=== PATIENT | female | born 1980 | race Caucasian/White ===

== ENCOUNTER → 2017-09-06 15:49 | Outpatient (CLI) | payer OTHER, SELFPAY ==
--- NOTE | 2017-09-06 15:57 | RAD_ITS ---
STUDY: XR SPINE ENTIRE THORACIC T LUMBAR (W SKULL, CERVICAL AND SACRAL SPINE IF PERFORMED) REASON FOR EXAM: Female, 37 years old. Scoliosis TECHNIQUE: Radiological exam, spine, entire thoracic and lumbar, including skull, cervical and sacral spine if performed (eg, scoliosis evaluation); 2 or 3 views. COMPARISON: None. FINDINGS: There is a 40 degree dextroscoliosis of the thoracic spine with the apex of the convexity at the T7 level. There is a 14 degree levoscoliosis scoliosis of the lumbar spine with the apex of the convexity at the L1 -2 level. Normal kyphosis of the thoracic spine. Normal thoracic vertebrae and endplates. Normal disc space heights of the thoracic spine. Normal lordosis of the lumbar spine. Normal lumbar vertebrae and endplates. Normal disc space heights of the lumbar spine. The soft tissue structures are unremarkable. RAD/Scoliosis 2 or 3 views IMPRESSION: There is a 40 degree dextroscoliosis of the thoracic spine with the apex of the convexity at the T7 level. There is a 14 degree levoscoliosis scoliosis of the lumbar spine with the apex of the convexity at the L1 -2 level. Electronically Signed: Bhupinder Christopher MD at 17:17 EDT , Service support ,
== END ==
LOC: MTRAD 15:54
PROVIDERS: Family Provider Family Medicine; PCP Family Medicine; Visit Provider Family Medicine
DX: M41.9 Scoliosis, unspecified (principal)
CPT/HCPCS: 72082

== ENCOUNTER → 2018-05-25 13:55 | Outpatient (CLI) | payer BC, SELFPAY ==
[2018-05-29 13:04] LABS: HPV Reflexed? NOT INDICATED
== END ==
PROVIDERS: Visit Provider Obstetrics & Gynecology
DX: Z12.4 Encounter for screening for malignant neoplasm of cervix (principal)
CPT/HCPCS: 88175; G0145

== ENCOUNTER → 2019-06-19 16:41 | Outpatient (CLI) | payer BC, SELFPAY ==
[2015-04-06 21:18] VITALS: BMI 28.8
[2019-06-21 21:25] LABS: HPV Reflexed? NOT INDICATED
== END ==
PROVIDERS: Visit Provider Obstetrics & Gynecology
DX: Z12.4 Encounter for screening for malignant neoplasm of cervix (principal)
CPT/HCPCS: 88175; G0145

== ENCOUNTER → 2020-03-12 12:09 | Outpatient (CLI) | payer BC, SELFPAY ==
[2015-04-06 21:18] VITALS: BMI 28.8
--- NOTE | 2020-03-12 12:12 | RAD_ITS ---
STUDY: X-RAY - RIGHT SHOULDER REASON FOR EXAM: Female, 39 years old. Pain TECHNIQUE: 4 view(s) of the shoulder. COMPARISON: None. FINDINGS: There is no evidence of fracture or dislocation. There are no significant degenerative changes. There are no radiodense foreign bodies. There is scoliosis noted in the spine. RAD/Shoulder min 2 Views IMPRESSION: No fracture or dislocation in the right shoulder. Scoliosis.. Electronically Signed: Bar Munson, at 16:16 EDT Tel , Service support ,
== END ==
LOC: MTRAD 12:11
PROVIDERS: PCP Family Medicine; Referring Provider Family Medicine; Visit Provider Family Medicine
DX: M25.511 Pain in right shoulder (principal)
CPT/HCPCS: 73030

== ENCOUNTER 2020-05-03 09:30 | Outpatient (RCR) | payer BC, SELFPAY ==
--- NOTE | 2020-03-25 15:05 | HP.PTEVAL ---
Patient's Visit Information SHERRY VELASCO is a 39 year old F referred to Physical Therapy by Dr. Segundo Valenzuela MD with a diagnosis of R shoulder pain. Date of Evaluation: 03/25/20 Physical Therapist: Bhupinder Fitch, PT, ATC - Visit Plan Frequency: 1x/Week Duration: 2 Weeks Plan: Issue and instruct a HEP consisting of rotator cuff strengthening and scap stab ex's - Subjective Pt is R hand dominant. Pt has mid-thoracic scoliosis, was completing strengthening for scoliosis and ended up hurting R shoulder. Pain started to go all the way from shoulder to hand about 3 weeks ago. Has been dealing with the shoulder pain for about 2 months. Can feel popping and clicking with shoulder rotation. Feels tingling sometimes mostly when she wakes up. Ice, biofreeze roll-on, and motrin help with pain. The pain often times wakes her up at night. Works from home for [employer] using a standing desk, stands for about 40% of work day. 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 - Pain R shoulder Pain Intensity (Out of 10): 4 Pain Intensity Range: 2, 9 - Objective Neuro: B UE sensation is WNL to light touch. B bicepital reflex= 2/3. Palpation: Pt is very sore along the distribution of the supraspinatus muscle. No obvious deformity or crepitus at this time. ROM: L shoulder flex= 170, abd= 170, ER= 55, IR WNL; R shoulder flex= 150, abd= 80, ER= 60, IR minimally limited. MMT: R shoulder ER and ABD= 4-/5 and painful. All other B UE 5/5 throughout. Special testing: Pos empty can, Pos HK test - Goals Goal 1:: I wtih HEP Goal Time Frame: 2 Weeks - Rehabilitation Potential Physical Therapy Diagnosis: R shoulder pain, weakness, and limited ROM secondary to R shoulder impingement syndrome Rehabilitation Potential: Good - Anticipated Interventions Patient/Client Instruction: Educate patient on: Condition, Plan of Care For the Purpose of:: To improve self management Therapeutic Exercise to Include: Strength training, Flexibilty training, Active ROM, Scapular Strength/Stabilization For the Purpose of:: To decrease pain, To increase ROM, To improve muscle performance and motor function Cryotherapy (ice pack, ice massage): Yes For the Purpose of:: To decrease pain Thank you for the opportunity to evaluate your patient. For Medicare and Medicare HMO plans, please review the plan of care and approve it. It will need to be FAXED BACK to us at [phone] for Medicare purposes. For Medicare only, by signing this I certify the plan of care. Please let me know if there are questions or concerns regarding this plan of care. Physician Signature: Date:
--- NOTE | 2020-05-03 10:05 | HP.PTREVAL ---
Dr. Segundo Valenzuela MD, It has been my pleasure to treat SHERRY VELASCO over the last 4 visits for R shoulder pain. Please see the progress note below for an update on the physical therapy plan of care! Subjective: Pt reports she feels ready for discharge Objective/Function: Pt reports her pain ranges from 2-7/10 at this time. R shoulder ROM: flex= 160, abd= 150, ER= 55, IR WNL. R shoulder MMT: R shoulder flex and abd= 4/5, IR and ER 4+/5. Pt is progressing well towards Rx goals. Plan Plan: Followup in 4 weeks Goals Goal 1:: I wtih HEP Goal Time Frame: 2 Weeks Goal Progress: Goal Met Anticipated Interventions Patient/Client Instruction: Educate patient on: Condition, Plan of Care For the Purpose of:: To improve self management Therapeutic Exercise to Include: Strength training, Flexibilty training, Active ROM, Scapular Strength/Stabilization For the Purpose of:: To decrease pain, To increase ROM, To improve muscle performance and motor function Cryotherapy (ice pack, ice massage): Yes For the Purpose of:: To decrease pain Please do not hesitate to contact me at [phone] by phone or if you have questions or concerns regarding this new plan of care! Sincerely, Bhupinder Fitch, PT, ATC
--- NOTE | 2020-07-08 15:14 | HP.PT.NRP ---
SHERRY VELASCO was seen in my office for initial evaluation on 03/25/20. The following Plan of Care was established for this patient: Initial Frequency: 1x/Week Initial Duration: 2 Weeks Patient/Client Instruction: Educate patient on: Condition, Plan of Care For the Purpose of:: To improve self management Therapeutic Exercise to Include: Strength training, Flexibilty training, Active ROM, Scapular Strength/Stabilization For the Purpose of:: To decrease pain, To increase ROM, To improve muscle performance and motor function Cryotherapy (ice pack, ice massage): Yes For the Purpose of:: To decrease pain This patient was last seen in our office . Pertinent comments regarding their Physical therapy will appear below: Pt was treated for 4 PT visits for R shoulder pain through the date of 05/03/20. Pt has not returned through todays date and is discontinued at this time. At this point I will be discontinuing this patient from physical therapy. I would be happy to see this patient again in the future if found appropriate by the physician. Thank you! Bhupinder Fitch, PT, ATC
== END 2020-05-03 19:00 | disposition home or self-care (01) ==
LOC: PT 09:30
PROVIDERS: PCP Family Medicine; Referring Provider Family Medicine; Visit Provider Family Medicine
DX: M25.511 Pain in right shoulder (principal)
CPT/HCPCS: 97110; 97161; 97164

== ENCOUNTER → 2020-07-30 10:21 | Outpatient (CLI) | payer BC, SELFPAY ==
--- NOTE | 2020-07-30 10:23 | BI_ITS ---
MAMMOGRAPHY - BILATERAL SCREENING REASON FOR EXAM: Female, 40 years old. Routine annual screening examination. PERTINENT HISTORY: TECHNIQUE: Digital bilateral breast temitope (3D mammographic acquisition) in the CC and MLO projections. 2-D mediolateral oblique (MLO) and craniocaudad (CC) views of both breasts were obtained. CAD: Full Field Digital Mammography with Computer Added Detection was performed. COMPARISON: None. Baseline examination. FINDINGS: Breast Composition: The breasts are heterogeneously dense, which may obscure small masses. There are no dominant masses or suspicious calcifications. No other significant abnormalities are identified. BI/SCRN MAMM (CAD)W/TEMITOPE BILAT IMPRESSION: Negative screening mammogram. Yearly followup mammogram recommended. (A) ASSESSMENT CATEGORY: BIRADS Category 1: Negative. A letter regarding these results will be sent to the patient by the facility within 30 days. Approximately 10% of breast cancers are not detected by mammography. A normal mammogram should not delay biopsy of a clinically suspicious abnormality. [id number] Electronically Signed: Narinder Hernandez MD at 11:00 EST , Service support ,
== END ==
PROVIDERS: PCP Family Medicine; Referring Provider Obstetrics & Gynecology; Visit Provider Obstetrics & Gynecology
DX: Z12.31 Encounter for screening mammogram for malignant neoplasm of breast (principal)
CPT/HCPCS: 77063; 77067

== ENCOUNTER 2021-08-13 09:08 | Outpatient (CLI) | payer BC, SELFPAY ==
--- NOTE | 2021-08-13 09:12 | BI_ITS ---
MAMMOGRAPHY - BILATERAL SCREENING 3-D TOMOSYNTHESIS REASON FOR EXAM: Female, 41 years old. SCREENING PERTINENT HISTORY: No significant family history. TECHNIQUE: 2-D mammograms and 3-D Tomosynthesis of the breast (s) were performed. CAD was performed. COMPARISON: 07/30/2020 FINDINGS: The breast composition is heterogeneously dense that can obscure small breast masses. Scattered benign calcifications are seen. No dense spiculated masses or suspicious microcalcifications are identified. No architectural distortion is identified. There is no skin thickening or retraction. There has been no significant change since the prior study. BI/SCRN MAMM (CAD)W/TEMITOPE BILAT IMPRESSION: No mammographic signs of malignancy. Routine yearly mammograms recommended. ASSESSMENT CATEGORY: BIRADS Category 1: Negative. A letter regarding these results will be sent to the patient by the facility within 30 days. FOLLOW UP RECOMMENDATION: Yearly follow up mammogram recommended. (A) Approximately 10% of breast cancers are not detected by mammography. A normal mammogram should not delay biopsy of a clinically suspicious abnormality. Electronically Signed: Mike Anders MD at 10:24 EDT ,
== END 2021-08-13 23:59 | disposition home or self-care (01) ==
LOC: OPBI 09:08
PROVIDERS: PCP Family Medicine; Referring Provider Obstetrics & Gynecology; Visit Provider Obstetrics & Gynecology
DX: Z12.31 Encounter for screening mammogram for malignant neoplasm of breast (principal)
CPT/HCPCS: 77063; 77067

== ENCOUNTER → 2021-09-18 | Outpatient (CLI) | payer BC, SELFPAY ==
[2021-09-25 17:42] LABS: HPV Reflexed? NOT INDICATED
== END | disposition home or self-care (01) ==
LOC: LABSPEC 13:47
PROVIDERS: PCP Family Medicine; Visit Provider Obstetrics & Gynecology
DX: Z12.4 Encounter for screening for malignant neoplasm of cervix (principal)
CPT/HCPCS: 88175; G0145

== ENCOUNTER → 2022-10-22 | Outpatient (CLI) | payer BC, SELFPAY ==
--- NOTE | 2022-10-22 13:47 | BI_ITS ---
MAMMOGRAPHY - BILATERAL SCREENING REASON FOR EXAM: Female, 42 years old. Routine annual screening examination. PERTINENT HISTORY: Non-contributory. TECHNIQUE: Digital bilateral breast temitope (3D mammographic acquisition) in the CC and MLO projections. 2-D mediolateral oblique (MLO) and craniocaudad (CC) views of both breasts were obtained. CAD: Full Field Digital Mammography with Computer Added Detection was performed. COMPARISON: Screening mammogram from 08/13/2021, 07/30/2020. FINDINGS: Breast Composition: The breasts are heterogeneously dense, which may obscure small masses. There are no dominant masses or suspicious calcifications. No other significant abnormalities are identified. There has been no significant change since the prior study. BI/SCRN MAMM (CAD)W/TEMITOPE BILAT IMPRESSION: Stable bilateral screening mammogram. Yearly follow-up mammogram recommended. (A) ASSESSMENT CATEGORY: BIRADS Category 1: Negative. A letter regarding these results will be sent to the patient by the facility within 30 days. Approximately 10% of breast cancers are not detected by mammography. A normal mammogram should not delay biopsy of a clinically suspicious abnormality. Electronically Signed: Mat Saleh DO at 13:00 EDT ,
== END | disposition home or self-care (01) ==
LOC: OPBI 13:46
PROVIDERS: PCP Family Medicine; Referring Provider Student in an Organized Health Care Education/Training Program; Visit Provider Student in an Organized Health Care Education/Training Program
DX: Z12.31 Encounter for screening mammogram for malignant neoplasm of breast (principal)
CPT/HCPCS: 77063; 77067

== ENCOUNTER → 2023-11-24 | Outpatient (CLI) | payer BC, SELFPAY ==
[2023-11-29 12:08] LABS: HPV APTIMA, High Risk Negative (Negative)
== END | disposition home or self-care (01) ==
LOC: LABSPEC 14:40
PROVIDERS: PCP Family Medicine; Referring Provider Nurse Practitioner Women's Health; Visit Provider Nurse Practitioner Women's Health
DX: Z12.4 Encounter for screening for malignant neoplasm of cervix (principal)
CPT/HCPCS: 87624; 88175; G0145

== ENCOUNTER → 2023-12-23 | Outpatient (CLI) | payer BC, SELFPAY ==
--- NOTE | 2023-12-23 15:11 | BI_ITS ---
MAMMOGRAPHY - BILATERAL SCREENING REASON FOR EXAM: Female, 43 years old. Routine annual screening examination. PERTINENT HISTORY: Non-contributory. TECHNIQUE: Digital bilateral breast temitope (3D mammographic acquisition) in the CC and MLO projections. 2-D mediolateral oblique (MLO) and craniocaudad (CC) views of both breasts were obtained. CAD: Full Field Digital Mammography with Computer Added Detection was performed. COMPARISON: Comparison is made with prior study dated October 22, 2022 and August 13, 2021. FINDINGS: Breast Composition: The breasts are heterogeneously dense, which may obscure small masses. There are no dominant masses or suspicious calcifications. No other significant abnormalities are identified. There has been no significant change since the prior study. BI/SCRN MAMM (CAD)W/TEMITOPE BILAT IMPRESSION: Stable bilateral screening mammogram. Yearly follow-up mammogram recommended. (A) ASSESSMENT CATEGORY: BIRADS Category 1: Negative. A letter regarding these results will be sent to the patient by the facility within 30 days. Approximately 10% of breast cancers are not detected by mammography. A normal mammogram should not delay biopsy of a clinically suspicious abnormality. [id number] Electronically Signed: Narinder Hernandez MD at 8:21 EDT ,
== END | disposition home or self-care (01) ==
LOC: OPBI 15:11
PROVIDERS: PCP Family Medicine; Referring Provider Nurse Practitioner Women's Health; Visit Provider Nurse Practitioner Women's Health
DX: Z12.31 Encounter for screening mammogram for malignant neoplasm of breast (principal)
CPT/HCPCS: 77063; 77067

== ENCOUNTER → 2024-01-17 | Outpatient (CLI) | payer BC, SELFPAY ==
--- NOTE | 2024-01-17 11:07 | RAD_ITS ---
STUDY: X-RAY - RIGHT HAND REASON FOR EXAM: Female, 43 years old. Right pointer finger injury, pain radiates up to wrist TECHNIQUE: 3 view(s) of the hand. COMPARISON: None. FINDINGS: Normal radiocarpal articulation. Normal distal radioulnar joint. Normal visualized carpal bones. Normal carpal articulations Normal carpometacarpal articulation of the thumb. Normal second through fifth carpometacarpal joints. Normal metacarpi. Normal metacarpophalangeal joint of the thumb. Normal interphalangeal joint of the thumb. Normal proximal and distal phalanges of the thumb. Normal metacarpophalangeal joints of the second through fifth fingers. Normal proximal and distal interphalangeal joints of the second through fifth fingers. Normal phalanges of the second through fifth fingers. The soft tissue structures are unremarkable. RAD/Hand Min 3 Views IMPRESSION: Normal x-ray examination of the hand. Electronically Signed: Narinder Hernandez MD at 11:21 EDT ,
== END | disposition home or self-care (01) ==
LOC: MTRAD 11:03
PROVIDERS: PCP Family Medicine; Referring Provider Registered Nurse; Visit Provider Registered Nurse
DX: S69.91XA Unspecified injury of right wrist, hand and finger(s), initial encounter (principal)
CPT/HCPCS: 73130

== ENCOUNTER → 2024-12-25 | Outpatient (CLI) | payer BC, SELFPAY ==
--- NOTE | 2024-12-25 12:24 | BI_ITS ---
EXAM: SCRN MAMM (CAD)W/TEMITOPE BILAT DATE: 12/25/2024 CLINICAL HISTORY: F, Age 44 y/o , SCREENING MAMMOGRAM FOR BREAST CANCER No family history. TECHNIQUE: SCRN MAMM (CAD)W/TEMITOPE BILAT COMPARISON: Prior exam(s) dated December 23, 2023.. FINDINGS: TISSUE DENSITY: The breasts are heterogeneously dense, which may obscure small masses. Bilateral Breast Mammographic Findings: No significant masses, calcifications or other abnormalities are identified. No suspicious masses, areas of developing architectural distortion, or suspicious calcifications. There has been no significant interval change. BI/SCRN MAMM (CAD)W/TEMITOPE BILAT IMPRESSION: Stable examination. OVERALL FINAL ASSESSMENT BI-RADS 1: NEGATIVE. RECOMMENDATION: Routine annual follow-up in 1 Year A letter with findings and recommendations will be mailed to the patient. Reading Location: [id number]
--- OUTSIDE RECORDS SUMMARY | 2024-12-25 22:18 | XMS RPT_ITS | CCD ---
Author Organization [facility] ion Partnership [facility] Care Team Providers Care Conditioner Tender Name Role Phone Bianca LAURA, Isabela Stephens Primary Care Provider GREGG RODRIGUEZ Attending Unavailable SELF Referring Unavailable ISABELA VALENZUELA Primary Care UnavailMARGARITA Morfin Referring Unavailable ISABELA VALENZUELA Primary Care Cal Valenzuela MD, Dr. Franz Primary Care Provider Bianca LAURA, Dr. Franz Referring Provider Dr. Apurva Ritchie DO Attending Provider Isabela Valenzuela Primary Care Unavailable Daniela Ram Referring Unavailable Daniela Ram Attending Unavailable Isabela Valenzuela Primary Care Unavailable Courtney SUPERVISOR FUR DRESSINGTrudy Referring Unavailable Courtney SUPERVISOR FUR DRESSINGTrudy Attending Unavailable Apurva Ritchie Attending Isabela Power Primary Care Unavailable Apurva Ritchie Referring Apurva Encarnacion Attending Isabela Power Referring Unavailable Isabela Valenzuela Primary Care Unavailable Medications Current Medications Medication Drug Class(es) Dates Sig (Normalized) Sig (Original) lidocaine hydrochloride 20 mg/ml mucous membrane topical solution (2 sources) Antiarrhythmic, Amide Local Anesthetic Start: 06-29-2018 lidocaine viscous (LIDOCAINE VISCOUS) 2 % solution Indications: Sore throat Gargle and spit 10-15mLs every 3-4 hours as need for throat discomfort. 120 mL 06/29/2018 Active Multivitamin capsule (2 sources) take 1 capsule by mouth once daily Multivitamin capsule Take 1 capsule by mouth once daily. Active Multivitamin tablet (1 source) Start: 11-24-2024 Multivitamin tablet Active 1 {tbl} PO daily November 24, 2024 12:00am Vit,Kaau69-Mvdv-Mywo c (Prenatabs Fa) 1 TABLET tablet (4 sources) Start: 04-06-2015 take 1 tablet by mouth once daily Vit,Ifii66-Xxgu-Th lic (Prenatabs Fa) 1 TABLET tablet Active 1 TABLET PO DAILY April 06, 2015 10:19pm Start: 04-06-2015 End: 11-02-2023 take 1 tablet by mouth once daily Vit,Lbij42-Vwvv-Jehvx (Prenatab s Fa) 1 TABLET tablet Discontinued 1 {tbl} PO DAILY April 06, 2015 1:00am November 02, 2023 1:02pm Start: 04-06-2015 take 1 tablet by macho th once daily Vit,Tiqe75-Bdtg-Wxqoc (Prenatab s Fa) 1 TABLET tablet Active 1 TABLET PO DAILY April 06, 2015 1:00am Completed/Discontinued Medications Medication Drug Class(es) Dates Sig (Normalized) Sig (Original) docusate sodium 100 mg oral capsule (4 sources) Start: 04-06-2015 End: 11-02-2023 take 1 capsule by mouth twice daily as needed for constipation Docusate Sodium (Dok) 100 MG capsule Discontinued 100 mg PO TWICE DAILY NEEDED as needed for Constipation 60 0 April 06, 2015 1:00am November 02, 2023 1:02pm hydrocortisone 10 mg/ml / neomycin 3.5 mg/ml / polymyxin b [id number] unt/ml otic suspension (1 source) Aminoglycoside Antibacterial, Polymyxin-class Antibacterial, Corticosteroid Start: 11-02-2023 End: 11-12-2023 Neomycin-Polymyxi n-Hc 3.5-10,000-1 mg/mL-unit/mL-% drops,suspension Discontinued 4 NMA OTIC THREE TIMES A DAY 10 10 0 November 02, 2023 12:00am November 11, 2023 12:00am November 12, 2023 12:06am oxyCODONE hydrochloride 5 mg oral tablet (4 sources) Opioid Agonist Start: 04-06-2015 End: 11-02-2023 take 5-10 mg by mouth every four hours as needed for pain Oxycodone 5 MG tablet Discontinued 5 - 10 mg PO EVERY 4 HOURS NEEDED as needed for Mod-Severe (Pain Scale 6-10) 30 0 April 06, 2015 1:00am November 02, 2023 1:02pm Problems Active Problems Problem Classification Problem Date Documented Da te Episodic/Chronic Other ear and sense organ disorders (1 source) Acute otitis externa; Translations: [Unspecified acute noninfective otitis externa, left ear] 11-24-2023 Episodic Other screening for suspected conditions (not mental disorders or infectious disease) (2 sources) Encounter for screening mammogram for malignant neoplasm of breast; Translations: [Encounter for screening mammogram for malignant neoplasm of breast] Onset: 01-14-2024 Episodic Residual codes; unclassified (1 source) Family history of gene mutation; Translations: [Family history of carrier of genetic disease] 07-19-2024 Episodic Residual codes; unclassified (1 source) Family history of carrier of genetic disease; Translations: [Family history of gene mutation] Onset: 07-20-2024 Episodic Unclassified (1 source) Encounter for screening for malignant neoplasm of colon Unclassified (2 sources) Z12.11 - Encounter for screening for malignant neoplasm of colon Past or Other Problems Problem Classification Problem Date Documented Da te Episodic/Chronic Other injuries and conditions due to external causes (1 source) Unspecified injury of right wrist, hand and finger(s), initial encounter; Translations: [Unspecified injury of right wrist, hand and finger(s), initial encounter] Onset: 02-03-2024 Episodic Results Test Name Value Interpretation Reference Range Facility Senior Security Architect Office Visit Reporton 11-24-2024 Senior Security Architect Office Visit Report [facility] [address], [address] [place] [address] OFFICE VISIT Date of Service: 11/24/24 MR#: [id number] Acct: [id number] Name: MIRIAN LEWIS SANA Rep #: [id number] : 1980 Provider: Dr. 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 Required: No Is patient in pain?: No Allergies No Known Allergies Allergy (Verified 11/24/24 13:26) Medications ???Medication ???Instructions ???Recorded ???Confirmed ???Type multivitamin 1 tab PO QDAY 11/24/24 11/24/24 Hi story Post menopausal: No Patient : No : No PFSH Medical History Acute otitis externa of left ear Surgical History S/P Social History (Updated 11/24/24 @ 13:38 by Nancy Zapata) household members: spouse current occupational status: employed current occupation: [employer] Smoking Status: Never smoker alcohol intake: current alcohol intake frequency: a few times a month substance use type: does not use caffeine: Yes what type of physical activity do you participate in: bicycling and yoga frequency: 3-4 times per week seatbelt use: always do you feel safe at home: Yes additional social history: History 2 Elective abortions Hx Para 2 Spontaneous abortions Hx # Term Pregnancies Ectopic pregnancies Hx # Pregnancies Multiple births # of living children 2 Past Pregnancies Del. Date Name GA/Weeks Outcome Route Bth Weight Gen Labor Lgth Anesthesia Del Locatn Provider FOB Unknown Mayuri 06/01/2012 Unknown Gisselle 04/06/2015 HPI Encounter for routine gynecological examination Details: MIRIAN LEWIS is a 44 year old who presents for annual exam. recently from stage 3 colon cancer Last PAP: 11/24/23 History of abnormal PAP: no Last mammogram: 12/23/23 History of abnormal mammogram: no Colon cancer screening: due soon Other preventative health care screenings: up to date . normal labs at lab lexy Female Reproductive History Cycle Length: 21-35 Bleeding Duration: 5 Questions: metorrhagia: No, sexually active: Yes, dyspareunia: No and PCB: No Menopausal Symptoms: No hot flashes, No night sweats, No weight change, No mood changes, No difficulty concentrating, No sleep problems and No change in libido ROS Const Constitutional: Reports as per HPI; Denies fatigue, increased appetite, poor appetite, night sweats, weight gain or weight loss Cardio Card: Denies chest pain Resp Resp: Denies cough or dyspnea GI GI: Reports as per HPI; Denies abdominal pain, bloating, constipation, nausea or vomiting : Reports as per HPI and other; Denies difficulty voiding, dysuria, hematuria, hot flashes, nipple discharge, pelvic pain, prolapse symptoms, urinary frequency, urinary incontinence, urinary urgency, vaginal discharge, vaginal dryness, vaginal odor or vaginal pruritus Skin Skin/Breast: Denies changing lesions, breast mass, breast pain, breast skin changes or nipple discharge Psych Psych: Denies anxiety, change in libido, depression or difficulty concentrating Exam Const General: cooperative, healthy appearing, comfortable, no acute distress, well developed and well groomed [facility] Head: normal to inspection and normocephalic Ears: hearing grossly normal bilaterally and external ears normal Nose: external nose normal Face and sinus: normal facial exam Neck Neck: normal visual inspection, full ROM and no lymphadenopathy Thyroid: thyroid normal Chest Chest palpation inspection: normal inspection of the chest Breast inspection: normal inspection of the breasts and normal inspection of the axillae Breast palpation: normal palpation of the breasts, normal palpation of the axillae and no axillary lymphadenopathy Resp Effort Inspection: normal respiratory effort GI Inspection: normal to inspection and non-distended Palpation: soft, no hepatosplenomegaly and no guarding General: bladder normal to palpation External Female Exam: normal external appearance, normal appearance of the urethra and no lesions Urethra: normal appearance of the urethra and normal palpation Speculum Exam - Vagina: normal appearance of the vagina and normal vaginal discharge Speculum Exam - Cervix: normal appearance of the cervix, no cervical discharge, no lesions and nontender Bimanual Exam- Vagina Uterus: normal bimanual exam, uterine size normal, bladder norm (more content not included)... Normal [facility] Hand Min 3 Viewson 4 Hand Min 3 Views [facility] [address] [place] [address] Hand Min 3 Views MR#: [id number] Acct: [id number] Name: MIRIAN LEWIS SANA Rep #: [id number] : 1980 F 43 From: Narinder bonds MD PCP: Dr. Isabela Valenzuela MD Status: REG CLI Study: Hand Min 3 Views Date of Exam: 01/17/24 Exam# [id number] Ordering Dr: Daniela Silva NP [id number] STUDY: X-RAY - RIGHT HAND REASON FOR EXAM: Female, 43 years old. Right pointer finger injury, pain radiates up to wrist TECHNIQUE: 3 view(s) of the hand. COMPARISON: None. FINDINGS: Normal radiocarpal articulation. Normal distal radioulnar joint. Normal visualized carpal bones. Normal carpal articulations Normal carpometacarpal articulation of the thumb. Normal second through fifth carpometacarpal joints. Normal metacarpi. Normal metacarpophalangeal joint of the thumb. Normal interphalangeal joint of the thumb. Normal proximal and distal phalanges of the thumb. Normal metacarpophalangeal joints of the second through fifth fingers. Normal proximal and distal interphalangeal joints of the second through fifth fingers. Normal phalanges of the second through fifth fingers. The soft tissue structures are unremarkable. RAD/Hand Min 3 Views IMPRESSION: Normal x-ray examination of the hand. Electronically Signed: Narinder Hernandez MD at 11:21 EDT Reading Location ID and State: [facility] / [place] , Service support , CC: Dr. Isabela Valenzuela MD; Daniela Silva Lead Laying And Gluing Machine Operator: Signed Normal [facility] SCRN MAMM (CAD)W/TEMITOPEAlee Mcfarland n 12-23-2023 SCRN MAMM (CAD)[facility] [address] [place] [id number] SCRN MAMM (CAD)W/TEMITOPEAlee OQUENDO MR#: [id number] Acct: [id number] Name: MIRIAN LEWIS Rep #: [id number] : 1980 F 43 From: Narinder bonds MD PCP: Dr. Isabela Valenzuela MD Status: [facility] Study: SCRN MAMM (CAD)W/TEMITOPE BILAT Date of Exam: 11/29 10/21 Exam# [id number] Ordering Dr: Trudy Valdez SUPERVISOR FUR DRESSING SUPERVISOR FUR DRESSING -[id number] MAMMOGRAPHY - BILATERAL SCREENING REASON FOR EXAM: Female, 43 years old. Routine annual screening examination. PERTINENT HISTORY: Non-contributory. TECHNIQUE: Digital bilateral breast temitope (3D mammographic acquisition) in the CC and MLO projections. 2-D mediolateral oblique (MLO) and craniocaudad (CC) views of both breasts were obtained. CAD: Full Field Digital Mammography with Computer Added Detection was performed. COMPARISON: Comparison is made with prior study dated October 22, 2022 and August 13, 2021. FINDINGS: Breast Composition: The breasts are heterogeneously dense, which may obscure small masses. There are no dominant masses or suspicious calcifications. No other significant abnormalities are identified. There has been no significant change since the prior study. BI/SCRN MAMM (CAD)W/TEMITOPE BILAT IMPRESSION: Stable bilateral screening mammogram. Yearly follow-up mammogram recommended. (A) ASSESSMENT CATEGORY: BIRADS Category 1: Negative. A letter regarding these results will be sent to the patient by the facility within 30 days. Approximately 10% of breast cancers are not detected by mammography. A normal mammogram should not delay biopsy of a clinically suspicious abnormality. [id number] Electronically Signed: Narinder Hernandez MD at 8:21 EDT , CC: SHWETHA Valdez; Dr. Isabela Valenzuela MD Lead Laying And Gluing Machine Operator: Signed Normal [facility] Cervical or vagninal specime n microscopic examination by cytology stain (reported ason 09-18-2021 Cytology report Cyto stain Doc (Cvx/Vag) Comment [facility] Work Phone: Comment on above: The Pap smear is a s creening test designed to aid in thedetection of premalignant and malignant conditions of theuterine cervix. It is not a diagnostic procedure andshould not be used as the sole means of detecting cervicalcancer. Both false-positive and false-negative reports dooccur. Laboratory - Cytologyon 08-30 Planning Intern Cyto stain Nom (Cvx/Vag) [ID] Comment [facility] Work Phone: Comment on above: Mahnaz Pandey, Cyto technologist (ASCP) Laboratory - Miscellaneous t estson 09-18-2021 Service comment (Unsp spec) [Interp] Comment [facility] Work Phone: Comment on above: This liquid based Th inPrep(R) pap test was screened withthe use of an image guided system. Service comment (Unsp spec) [Interp] . [facility] Work Phone: No Panel Informationon 09-18 Human Papillomavirus Screen Comment [facility] Work Phone: Comment on above: The HPV DNA reflex c macario were not met with this specimenresult therefore, no HPV testing was performed.Performed at: [address] [id number] Director: Windy Sloan MD, Phone: [phone] Pathology report final diagnosis Narrative Comment [facility] Work Phone: Comment on above: NEGATIVE FOR INTRAEP ITHELIAL LESION OR MALIGNANCY. Vital Signs Date Time Vital Sign Value Performing Clinician Faci lity 11-24-2024 13:28-0400 Body height 162.[address] Isabela Valenzuela MD Work Phone: [facility] 11-24-2024 13:26-0400 Body mass index (BMI) [Ratio] 23.3 kg/m2 Dr. Isabela Valenzuela MD Work Phone: [facility] 11-24-2024 13:26-0400 Body weight 61.[address] Isabela Valenzuela MD Work Phone: [facility] 11-24-2024 13:26-0400 Diastolic blood pressure 83 mm[Hg] Dr. Isabela Valenzuela MD Work Phone: [facility] 11-24-2024 13:26-0400 Systolic blood pressure 130 mm[Hg] Dr. Isabela Valenzuela MD Work Phone: [facility] Encounters Encounter Date Encounter Type Care Provider Facility Start: 11-24-2024 End: 11-24-[address] Apurva Ritchie DO [facility] Work Phone: Start: 11-24-2024 End: 11-24-[address] Apurva Ritchie DO [facility] Start: 11-24-2024 End: 11-24-[address] Isabela Valenzuela MD Work Phone: [facility] Start: 07-27-2024 End: 09-26-2024 Follow-up encounter Gregg Rodriguez MS Work Phone: [facility] Start: 07-20-2024 End: 07-20-2024 ambulatory MARGARITA LOPEZ Facility:[facility] Start: 07-19-2024 End: 07-19-2024 ambulatory Gregg Rodriguez MS Work Phone: [facility] Comment on above: Family history of ge ne mutation (Primary Dx) Start: 07-19-2024 End: 07-19-2024 Telemedicine consultation with patient Gregg Rodriguez MS Work Phone: [facility] Start: 01-17-2024 End: 01-17-2024 ambulatory [facility] Facility:[facility] Start: 12-23-2023 End: 12-23-2023 ambulatory [facility] Facility:[facility] Start: 10-22-2022 End: 10-22-2022 ambulatory [facility] Work Phone: Start: 10-22-2022 End: 10-22-2022 Patient encounter procedure [facility]Outpatient [facility] Work Phone: Start: 09-18-2021 End: 09-18-2021 Patient encounter procedure [facility]-Laboratory, Specimen Start: 08-13-2021 End: 08-13-2021 Patient encounter procedure [facility] Breast [facility] Procedures Date Procedure Procedure Detail Performing Clinician Start: 10-22-2022 Screening mammography Start: 08-13-2021 Screening mammography Plan of Treatment Date Care Activity Detail Author Start: 12-25-2024 ambulatory Ambulatory Facility:[facility] Start: 07-20-2024 End: 07-20-2024 ambulatory 07/20/2024 9:15 AM EST Results Only [facility] [address] [place] [address] [facility] Start: 07-19-2024 End: 10-18-2024 [facility]AGNOST[facility] CANCER PANEL [facility] PANEL Lab Routine Family history of gene mutation Expected: 07/19/2024, Expires: 10/18/2024 [facility] Work Phone: Comment on above: Expected: 07/19/2024 , Expires: 10/18/2024 Start: 01-30-2024 Covid-19 Vaccine ( season) Covid-19 Vaccine () [facility] Start: 01-30-2024 Influenza vaccination Influenza Vacc ine (#1) [facility] Start: 05-31-2023 Urine microalbumin profile DTaP,Tdap,Td Vaccine (2 - Td or Tdap) [facility] Start: 2020 Screening for malign ant neoplasm of breast Mammogram Screening [facility] Start: 2001 Screening for malign ant neoplasm of cervix Cervical Cancer Screening [facility] Start: 1999 Hepatitis B Vaccine (1 of 3 - 19+ 3-dose series) Hepatitis B Vaccine (1 of 3 - 19+ 3-dose series) [facility] Start: 1998 Anxiety Screening Anxiety Screening [facility] Start: 1998 Depression Screening Depression Scre ening [facility] Start: 1998 Hepatitis C screening Hepatitis C Sc reening [facility] Start: 1998 HIV screening HIV Screening [facility] Immunizations Immunization Date Immunization Notes Care Provider Fa abel 03-16-2018 influenza virus vacc ine, unspecified formulation Gregg Rodriguez MS Work Phone: [facility] Payers Date Payer Category Payer Self-pay [id number] 2018 [employer] BLUE CARD PPO OOS [id number] 2018 Unknown [id number] Unknown [id number] Unknown [id number] Unknown [id number] Unknown [id number] Unknown [id number] Social History Date Type Detail Facility Start: 04-07-2015 Tobacco smoking stat us NHIS Unknown if ever smoked [facility] Start: 1980 Sex Assigned At Female W [facility] Start: 05-25-2017 End: 11-24-2024 Tobacco smoking status NHIS Never smoked tobacco [facility] Start: 05-25-2017 Tobacco use and exposure Smokeless tobacco non-user [facility] Start: 01-13-2022 Alcoholic beverage intake Not Asked [facility] Start: 01-13-2022 End: 07-19-2024 History of Social function [facility] Start: 01-13-2022 End: 07-19-2024 Tobacco use panel [facility] National Score (1-10 0), lower number is lower risk 65 [facility] Start: 1980 Sex assigned at Not on file [facility] Functional Status Date Assessment Result Facility 04-17-2014 Are you deaf, or do you have serious difficulty hearing No 04/17/2014 5:56 PM Aspen Black MA No [facility] 04-17-2014 Are you blind, or do you have serious difficulty seeing, even when wearing glasses No 04/17/2014 5:56 PM Aspen Black MA No [facility] 04-17-2014 Do you have serious difficulty walking or climbing stairs No 04/17/2014 5:56 PM Aspen Black MA No [facility] 04-17-2014 Do you have difficul ty dressing or bathing No 04/17/2014 5:56 PM Aspen Black MA No [facility] 04-17-2014 Because of a physica l, mental, or emotional condition, do you have difficulty doing errands alone such as visiting a physician's office or shopping No 04/17/2014 5:56 PM Aspen Black MA [facility] Mental Status Date Assessment Result Facility 04-17-2014 Because of a physica l, mental, or emotional condition, do you have serious difficulty concentrating, remembering, or making decisions No 04/17/2014 5:56 PM Aspen Black MA No [facility] Progress note 07-27-2024 Result Encounter Note - Gregg Rodriguez, MS - 07/27/2024 2:20 PM EST Note Date & Type Note Facility 07-27-2024 Progress note Formatting of t his note might be different from the original. Genetic test results Mriian Emmanuel Joshua's Multi-Cancer panel through [facility] was negative for a pathogenic variant. Variant(s) of uncertain significance (VUS) detected: NTHL1 c.95G>A (p.[id number]) and SDHAF2 c.476A>C (p.Ozw546Sri). A VUS is a genetic variant for which insufficient data exists in order to determine if it is associated with disease (deleterious mutation) or is a normal genetic variant which can occur in the population without disease (benign polymorphism). Please see [employer] for further discussion. Gregg Rodriguez MS Licensed, Certified Genetic Counselor [facility] Work Phone: Note 07-27-2024 Result Encounter Note - Gregg Rodriguez MS - 07/27/2024 2:20 PM EST Note Date & Type Note Facility 07-27-2024 Miscellaneous Notes Formattin g of this note might be different from the original. Genetic test results Mirian Emmanuel Joshua's Multi-Cancer panel through [facility] was negative for a pathogenic variant. Variant(s) of uncertain significance (VUS) detected: NTHL1 c.95G>A (p.Hqt54Vtq) and SDHAF2 c.476A>C (p.[id number]). A VUS is a genetic variant for which insufficient data exists in order to determine if it is associated with disease (deleterious mutation) or is a normal genetic variant which can occur in the population without disease (benign polymorphism). Please see [employer] for further discussion. Gregg Rodriguez MS Licensed, Certified Genetic Counselor documented in this encounter [facility] History of Present illness Narrative 07-19-2024 Gregg Rodriguez MS - 07/19/2024 12:00 PM EST Note Date & Type Note Facility 02-19-2025 History of Presen t illness Narrative Department of Medical Genetics Consultation Note Genetic Counselor: Gregg Rodriguez, MS, [facility] Patient: Mirian Lewis Patient name and confirmed at initiation of visit Visit was done virtually via Zoom I have communicated my name and active licensure. The patient's identity and physical location were verified at the time of this visit. Either the patient or their legal student services representative has been informed of the risks and benefits of -- and alternatives to -- treatment through a remote evaluation and consents to proceed with the evaluation remotely. 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 The patient provided informed consent for Multi-Cancer panel through [facility]. Results are expected in 3 weeks from the time of sample collection. IDENTIFICATION AND CHIEF COMPLAINT: The patient requested a consultation for genetic counseling and risk assessment for Mirian Lewis, a 44 year old female, for discussion of her 's genetic test results. She presents to clinic today to discuss the possibility of a genetic predisposition to cancer, and to further clarify her risks, as well as her family members' risks for cancer. HISTORY OF PRESENT ILLNESS: Mirian Lewis is a 44 year old female with no personal history of cancer. In 2023, the patient's late underwent the Multi-Cancer Panel with preliminary-evidence colorectal cancer genes through [facility]. He was found to have a single MUTYH mutation c.1187G>A ([id number]), confirming that he was a carrier for MUTYH-associated polyposis. No past medical history on file. PAST SURGICAL HISTORY Procedure Laterality Date DELIVERY ONLY , low transverse CANCER SURVEILLANCE HISTORY: Mammograms: Yes / Patient reports within last year, negative Breast MRI's: No Breast Biopsies: No Colonoscopy: No EGD: No GI Polyps: N/A Dermatology: Yes / Patient reports no history of skin cancer REPRODUCTIVE HISTORY AND PERSONAL RISK ASSESSMENT FACTORS: Weight: Last 1 Encounter Wt Readings: Date: Wt: 06/06/2019 63.4 kg (139 lb 12.8 oz) Height: No data found for this vital: Ht Uterus Intact: Yes Ovaries Intact: Yes SOCIAL HISTORY: Social History Tobacco Use Smoking status: Never Smokeless tobacco: Never FAMILY HISTORY: We obtained a detailed, 4-generation family history. Significant diagnoses are listed below: FAMILY HISTORY Problem Relation Age of Onset Coronary Artery Disease Father age 40 from [place] The patient's maternal ancestors are of Chinese and Amharic descent and paternal ancestors are of descent. There is no Ashkenazi Denominational ancestry. There is no known consanguinity. The patient had no information about her paternal biological family history. A copy of the patient's pedigree will be available under the scanned documents tab following today's visit. GENETIC COUNSELING RISK ASSESSMENT, DISCUSSION, AND SUGGESTED FOLLOW UP: We reviewed the natural history and genetic etiology of sporadic, familial and hereditary cancer syndromes. We reviewed the patient's late 's genetic test results. In 2023, the patient's late underwent the Multi-Cancer Panel with preliminary-evidence colorectal cancer genes through [facility]. 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 We discussed genetic testing of MUTYH for the patient as it can help clarify the risks of the couple's children to have MUTYH-associated polyposis. There is about a 1-2% chance that the patient has a MUTYH mutation and is a carrier for MUTYH-associated polyposis. If she is found to be a carrier for MUTYH-associated polyposis, there would be a 25% chance for each child to have MUTYH-associated polyposis. The patient was offered MUTYH analysis through [facility] or Multi-Cancer panel through [facility]. We discussed that a broader panel, could identify a hereditary cancer syndrome for the patient. We discussed that identification of a hereditary cancer syndrome may help her care providers tailor her medical management. If a mutation is detected, the National Comprehensive Cancer Network and/or expert opinion recommendations could include increased cancer surveillance and prophylactic surgery options. If a mutation is detected, the patient will be referred back to the referring provider and to any additional appropriate care providers to discuss the relevant options. Inheritance of hereditary cancer syndromes was discussed with the patient. If a mutation is not found in the patient, this will decrease the likelihood of a hereditary cancer syndrome for the patient. However, it cannot completely rule out this possibility. Cancer surveillance options would be discussed for the patient according to the appropriate standard National Comprehensive Cancer Network and [place] [employer] guidelines, with consideration of their personal and family history risk factors. In this case, the patient will be referred back to their care providers for discussions of management. After considering the risks, benefits, and limitations, the patient chose to pursue and provided informed consent for the following testing: Multi-Cancer panel through [facility]. The Multi-Cancer Panel includes AIP, ALK, APC, DAVIDE, AXIN2, BAP1, BARD1, BLM, BMPR1A, BRCA1, BRCA2, BRIP1, CDC73, CDH1, CDK4, CDKN1B, CDKN2A, CHEK2, CTNNA1, DICER1, EGFR, EPCAM, FH, FLCN, GREM1, HOXB13, KIT, LZTR1, MAX, MBD4, MEN1, MET, MITF, MLH1, MSH2, MSH3, MSH6, MUTYH, NF1, NF2, NTHL1, PALB2, PDGFRA, PMS2, POLD1, POLE, POT1, RFYNF7I, PTCH1, PTEN, RAD51C, RAD51D, RB1, RET, SDHA, SDHAF2, SDHB, SDHC, SDHD, SMAD4, SMARCA4, SMARCB1, SMARCE1, STK11, SUFU, KGAU998, TP53, TSC1, TSC2, and VHL The Multi-Cancer panel looks at genes associated with cancers of the breast, gynecologic tract (ovarian, uterine/endometrial), gastrointestinal system (colorectal, gastric, pancreatic), endocrine glands (thyroid, parathyroid, pituitary, adrenal glands), genitourinary tract (renal/urinary tract, prostate), skin (melanoma, basal cell carcinoma), and brain/nervous system. We discussed that an NGS panel can rarely result in an unexpected finding which may or may not be related to the presenting phenotype. We discussed that the bill for the test will come directly from [employer]. Per the patient's request, we will contact her by [email or web address] or telephone to review these results. A follow up genetic counseling visit will be scheduled if requested. The patient was seen for a total of 25 minutes, greater than 50% of which was spent [id number] counseling. This plan is being carried out under the oversight of Dr. Margarita Lopez. This note will also be sent to the referring provider via the electronic medical record. Gregg Rodriguez MS, [facility] CC: Dr. Margarita Lopez documented in this encounter [facility] Progress note 07-19-2024 Note Date & Type Note Facility 07-19-2024 Note HNO ID: [id number] Author: GREGG RODRIGUEZ MS Service: ? Author Type: Genetic Counselor Type: Progress Notes Filed: 10/02/2024 10:03 Note Text: Department of Medical Genetics Consultation Note Genetic Counselor: Gregg Rodriguez MS, [facility] [place] Patient: Mirian Lewis Patient name and confirmed at initiation of visit Visit was done virtually via Zoom I have communicated my name and active licensure. The patient's identity and physical location were verified at the time of this visit. Either the patient or their legal student services representative has been informed of the risks and benefits of -- and alternatives to -- treatment through a remote evaluation and consents to proceed with the evaluation remotely. 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 The patient provided informed consent for Multi-Cancer panel through [facility]. Results are expected in 3 weeks from the time of sample collection. IDENTIFICATION AND CHIEF COMPLAINT: The patient requested a consultation for genetic counseling and risk assessment for Mirian Lewis, a 44 year old female, for discussion of her 's genetic test results. She presents to clinic today to discuss the possibility of a genetic predisposition to cancer, and to further clarify her risks, as well as her family members' risks for cancer. HISTORY OF PRESENT ILLNESS: Mirian Lewis is a 44 year old female with no personal history of cancer. In 2023, the patient's late underwent the Multi-Cancer Panel with preliminary-evidence colorectal cancer genes through [facility]. He was found to have a single MUTYH mutation c.1187G>A (p.[id number]), confirming that he was a carrier for MUTYH-associated polyposis. No past medical history on file. PAST SURGICAL HISTORY Procedure Laterality Date DELIVERY ONLY , low transverse CANCER SURVEILLANCE HISTORY: Mammograms: Yes / Patient reports within last year, negative Breast MRI's: No Breast Biopsies: No Colonoscopy: No EGD: No GI Polyps: N/A Dermatology: Yes / Patient reports no history of skin cancer REPRODUCTIVE HISTORY AND PERSONAL RISK ASSESSMENT FACTORS: Weight: Last 1 Encounter Wt Readings: Date: Wt: 06/06/2019 63.4 kg (139 lb 12.8 oz) Height: No data found for this vital: Ht Uterus Intact: Yes Ovaries Intact: Yes SOCIAL HISTORY: Social History Tobacco Use Smoking status: Never Smokeless tobacco: Never FAMILY HISTORY: We obtained a detailed, 4-generation family history. Significant diagnoses are listed below: FAMILY HISTORY Problem Relation Age of Onset Coronary Artery Disease Father age 40 from [place] The patient's maternal ancestors are of Chinese and Amharic descent and paternal ancestors are of descent. There is no Ashkenazi Denominational ancestry. There is no known consanguinity. The patient had no information about her paternal biological family history. A copy of the patient's pedigree will be available under the scanned documents tab following today's visit. GENETIC COUNSELING RISK ASSESSMENT, DISCUSSION, AND SUGGESTED FOLLOW UP: We reviewed the natural history and genetic etiology of sporadic, familial and hereditary cancer syndromes. We reviewed the patient's late 's genetic test results. In 2023, the patient's late underwent the Multi-Cancer Panel with preliminary-evidence colorectal cancer genes through [facility]. He was found to have a single MUTYH mutation c.1187G>A (p.[id number]), confirming that he was a carrier for MUTYH-associated polyposis. We discussed genetic testing of MUTYH for the patient as it can help clarify the risks of the couple's children to have MUTYH-associated polyposis. There is about a 1-2% chance that the patient has a MUTYH mutation and is a carrier for MUTYH-associated polyposis. If she is found to be a carrier for MUTYH-associated polyposis, there would be a 25% chance for each child to have MUTYH-associated polyposis. The patient was offered MUTYH analysis through [facility] or Multi-Cancer panel through [facility]. We discussed that a broader panel, could identify a hereditary cancer syndrome for the patient. We discussed that identification of a hereditary cancer syndrome may help her care providers tailor her medical management. If a mutation is detected, the National Comprehensive Cancer Network and/or expert opinion recommendations could include increased cancer surveillance and prophylactic surgery options. If a mutation is detected, the patient will be referred back to the referring provider and to any additional appropriate care providers to discuss the relevant options. Inheritance of hereditary cancer syndromes was discussed with the patient. If a mutation is not found in the patient, this will decrease the likelihood of a hereditary cancer syndrome for (more content not included)... [facility] Clinical Note 09-18-2021 Note Date & Type Note Facility 09-18-2021 Note [facility] Work Phone: Pap Smear Specimen Adequacy September 18, 2021 11:45am Comment Satisfactory for evaluation. Endocervical and/or squamous metaplasticcells (endocervical component) are present. Comment on above: Satisfactory for hector luation. Endocervical and/or squamous metaplasticcells (endocervical component) are present. Evaluation note Note Date & Type Note Facility Evaluation note No assessment information availa ble [facility] Work Phone: Evaluation note Note Date & Type Note Facility Evaluation note Diagnosis Family history of gene mutation- Primary documented in this encounter [facility] Evaluation note Note Date & Type Note Facility Evaluation note Diagnosis Onset Date Resolution Encounter for routine gynecological examination noneactive November 24, 2024 1:25pm [facility] Work Phone: Hospital Discharge instructions Note Date & Type Note Facility Hospital Discharge instructions Ambulatory OrdersGeneral Surgery Location: None Selected [facility] Work Phone: Chief Complaint and Reason for Visit Chief Complaint SCREENING Chief Complaint 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, 2024 1:25 pm Reason for Visit Admit Date Encounter for routine gynecological exam ination November 24, 2024 1:25pm Advance Directives No Advanced Directives Records Found Advance Directive Response Recorded Date/ Time Living Will Yes April 07 1:53am Power of Floor Associate Yes April 07, 2015 1:53am Summary Purpose Family History No Family History Records FoundNo Family History Records Found Additional Source Comments Goals (unrecognized section and content) Goals may be documented in a n alternate sectionGoals may be documented in an alternate sectionGoals may be documented in an alternate sectionGoals may be documented in an alternate section Care Teams (unrecognized sec tion and content) Team Status: Active Member Role Status Dates Dr. Segundo Valenzuela MD Primary Care Provider Activ e Team Status: Inactive Member Role Status Dates Dr. Segundo Valenzuela MD Primary Care Provider Activ e Dr. Brianna Murphy DO Attending Provider, Referrin g Provider Active Conditioner Tender Relationship Specialty Start Date End Date Isabela Valenzuela MD [address] [address] PCP - General Family Medicine 04/20/16 Conditioner Tender Relationship Specialty Start Date End Date Isabela Valenzuela MD [address] [place] [address] PCP - General Family Medicine 04/20/16 Team Status: Active Member Role/Relationship Status Dates Dr. Isabela Valenzuela MD Primary Care Provider Acti ve Team Status: Inactive Member Role/Relationship Status Dates Dr. Isabela Valenzuela MD Primary Care Provider Acti ve Start: November 24, 2024 End: November 24, 2024 Dr. Isabela Valenzuela MD Referring Provider Active Start: November 24, 2024 End: November 24, 2024 Dr. Apurva Ritchie DO Attending Provider Activ e Start: November 24, 2024 End: November 24, 2024 Source Comments (unrecognize d section and content) In the event this informatio n is protected by the Federal Confidentiality of Alcohol and Drug Abuse Patient Records regulations: The Federal rules restrict any use of the information to criminally investigate or prosecute any alcohol or drug abuse patient.[facility] the event this information is protected by the Federal Confidentiality of Alcohol and Drug Abuse Patient Records regulations: The Federal rules restrict any use of the information to criminally investigate or prosecute any alcohol or drug abuse patient.[facility] Reason for Visit (unrecogniz ed section and content) Reason Comments Family History Of Cancer INFORMATION SOURCE (unrecogn ized section and content) DATE CREATED AUTHOR 10/05/2024 [facility] DATE CREATED AUTHOR AUTHOR'S ORGANIZ ATION 12/18/2024 [facility] FOR RECORDS PERTAINING TO PATIENTS WHO ARE OR HAVE BEEN ENROLLED IN A CHEMICAL DEPENDENCY/SUBSTANCEABUSE PROGRAM, SOME INFORMATION MAY BE OMITTED. This clinical summary was aggregated from multiple sources. Caution should be exercised in using it in the provision of clinical care. This summary normalizes information from multiple sources, and as a consequence, information in this document may materially change the coding, format and clinical context of patient data. In addition, data may be omitted in some cases. CLINICAL DECISIONS SHOULD BE BASED ON THE PRIMARY CLINICAL RECORDS. [employer] provides no warranty or guarantee of the accuracy or completeness of information in this document.
== END | disposition home or self-care (01) ==
LOC: OPBI 12:23
PROVIDERS: PCP Family Medicine; Referring Provider Obstetrics & Gynecology; Visit Provider Obstetrics & Gynecology
DX: Z12.31 Encounter for screening mammogram for malignant neoplasm of breast (principal)
CPT/HCPCS: 77063; 77067